=== PATIENT | female | born 1985 | race Caucasian/White ===

== ENCOUNTER 2020-08-06 09:08 | Inpatient (IN) | payer MEDICAID ==
[~2020-08-06] VITALS: Ht 157.5 cm; Wt 72.6 kg
[2020-08-06] MEDS ORDERED: LIDOCAINE HCL 1% 20ML VIAL (Pyxis) INJ INFIL SCH (11:00)
[2020-08-06] MEDS ORDERED: PENICILLIN G POTASSIUM 5 MMU in DEXT 5% WATER 100 ML IV SCH (11:00)
[2020-08-06] MEDS ORDERED: NALOXONE HCL 0.4 MG/ML 1ML VIAL IM PRN (11:00)
[2020-08-06] MEDS ORDERED: MISOPROSTOL 100MCG TABLET VG SCH (11:00)
[2020-08-06] MEDS ORDERED: CARBOPROST TROMETHAMINE 250 MCG/ML AMPUL IM PRN (11:00)
[2020-08-06] MEDS ORDERED: METHYLERGONOVINE MALEATE 0.2 MG/ML IM PRN (11:00)
[2020-08-06 11:18] LABS: BASOPHILS % 0.5 % (0.0-2.0); EOSINOPHILS % 0.7 % (0.0-5.0); HEMATOCRIT. 30.1 % (36.0-48.0); HEMOGLOBIN. 9.6 g/dL (12.0-16.0); LYMPHOCYTES % 16.9 % (20.0-50.0); MEAN CORPUSCULAR HEMOGLOBIN 25.4 pg (28.0-32.0); MEAN CORPUSCULAR VOLUME 79.6 fL (81.0-99.0); MEAN PLATELET VOLUME 10.8 fl (7.4-10.4); MONOCYTES % 8.9 % (2.0-8.0); PLATELET 169 x1000/uL (130-400); RED BLOOD CELL COUNT 3.78 mill/uL (4.2-5.4); RED CELL DISTRIBUTION WIDTH 20.6 % (11.6-14.6)
[2020-08-06 11:30] LABS: PARTIAL THROMBOPLASTIN TIME 28.5 sec (23.4-31.0); PROTHROMBIN TIME 10.3 sec (9.6-11.0)
[2020-08-06 11:36] LABS: CLARITY URINE CLEAR (CLEAR); COLOR URINE YELLOW (YELLOW); KETONES URINE NEGATIVE (NEGATIVE); LEUKOCYTE ESTERASE URINE NEGATIVE (NEGATIVE); NITRITE URINE NEGATIVE (NEGATIVE); OCCULT BLOOD URINE NEGATIVE (NEGATIVE); PH URINE 6.5 (4.5-8.0); PROTEIN URINE NEGATIVE (NEGATIVE)
[2020-08-06 11:46] LABS: HEPATITIS B SURFACE ANTIGEN NEGATIVE
[2020-08-06 11:53] LABS: *AMPHETAMINES SCREEN URINE NEGATIVE (NEGATIVE); *COCAINE SCREEN URINE NEGATIVE (NEGATIVE)
[2020-08-06 11:54] LABS: *BARBITURATES SCREEN URINE NEGATIVE (NEGATIVE); *BENZODIAZEPINES SCREEN URINE NEGATIVE (NEGATIVE)
[2020-08-06 11:55] LABS: CANNABINOID URINE SCREEN NEGATIVE (NEGATIVE)
[2020-08-06 11:56] LABS: METHADONE URINE SCREEN NEGATIVE (NEGATIVE); OPIATES URINE SCREEN NEGATIVE (NEGATIVE)
[2020-08-06 11:57] LABS: PHENCYCLIDINE URINE SCREEN NEGATIVE (NEGATIVE)
[2020-08-06] MEDS: LACTATED RINGERS 1,000 ML IV SCH ×2 (13:41→22:43)
[2020-08-06] MEDS: DEXT 5%/LR + PITOCIN 20UNITS/L 1,000 ML IV SCH (14:10)
[2020-08-06] MEDS ORDERED: ROPIVACAINE HCL/PF EPIDURAL 200 ML EP SCH (16:45)
[2020-08-06] MEDS: BUTORPHANOL TARTRATE 2 MG/ML VIAL IV PRN ×2 (18:04→23:10)
[2020-08-06] MEDS: PENICILLIN G POTASSIUM 2.5 MMU in DEXTROSE 5% WATER 50 ML IV SCH ×2 (18:59→22:56)
[2020-08-06] MEDS ORDERED: FOLI0.4T2 MT (21:28)
[2020-08-06] MEDS ORDERED: PREN-182 PO (21:28)
[2020-08-06] MEDS ORDERED: FERR325T6 PO (21:28)
[2020-08-06] MEDS ORDERED: CALC-837 PO (21:28)
[2020-08-07] MEDS: BUTORPHANOL TARTRATE 2 MG/ML VIAL IV PRN (01:30)
[2020-08-07] MEDS: LACTATED RINGERS 1,000 ML IV SCH (02:53)
[2020-08-07] MEDS: PENICILLIN G POTASSIUM 2.5 MMU in DEXTROSE 5% WATER 50 ML IV SCH (02:59)
[2020-08-07] MEDS ORDERED: BENZOCAINE/LANOLIN/ALOE VERA SPRAY TOP PRN (04:45)
[2020-08-07] MEDS ORDERED: IBUPROFEN 400MG TABLET PO PRN (04:45)
[2020-08-07] MEDS ORDERED: BISACODYL 10MG SUPP PR PRN (04:45)
[2020-08-07] MEDS ORDERED: DIPHENHYDRAMINE 25MG CAPSULE PO PRN (04:45)
[2020-08-07] MEDS ORDERED: GLYCERIN/WITCH HAZEL LEAF MEDICATED PAD TOP PRN (04:45)
[2020-08-07] MEDS ORDERED: HEMORRHOIDAL SUPP PR PRN (04:45)
[2020-08-07] MEDS ORDERED: DEXT 5%/LR + PITOCIN 20UNITS/L 1,000 ML IV SCH (04:45)
[2020-08-07] MEDS ORDERED: LANOLIN OINT 7GM TUBE TOP PRN (04:45)
[2020-08-07] MEDS ORDERED: ACETAMINOPHEN WITH CODEINE 300/30MG TABLET PO PRN (04:45)
[2020-08-07] MEDS: IBUPROFEN 800MG TABLET PO PRN ×2 (05:46→17:11)
[2020-08-07] MEDS: DEXT 5%/LR + PITOCIN 20UNITS/L 1,000 ML IV SCH (05:52)
[2020-08-07] MEDS ORDERED: ONDANSETRON HCL 4MG/2ML INJ IV PRN (06:00)
[2020-08-07] MEDS ORDERED: ONDANSETRON HCL 4MG/2ML INJ IV ONE (06:30)
[2020-08-07 06:40] VITALS: BP 96/54
[2020-08-07 07:31] VITALS: BP 94/58
[2020-08-07] MEDS: PRENATAL VIT/FE FUMARATE/FA TABLET PO SCH (08:15)
[2020-08-07] MEDS: MAGNESIUM/ALUMINUM HYDROXIDE/SIMETHICONE 30ML UDC PO SCH ×4 (08:15→20:28)
[2020-08-07] MEDS: SIMETHICONE 80MG TABLET CHEW PO SCH ×4 (08:15→20:27)
[2020-08-07 15:45] VITALS: BP 94/53
[2020-08-07 20:00] VITALS: BP 90/61
[2020-08-07] MEDS ORDERED: DOCUSATE SODIUM 100MG CAPSULE PO SCH (21:00)
[2020-08-08] VITALS: BP 96/60
[2020-08-08] MEDS ORDERED: RHO(D) IMMUNE GLOBULIN 300 MCG/SYR IM NR (00:15)
[2020-08-08 06:17] LABS: BASOPHILS % 0.7 % (0.0-2.0); EOSINOPHILS % 1.1 % (0.0-5.0); HEMATOCRIT. 25.9 % (36.0-48.0); HEMOGLOBIN. 8.3 g/dL (12.0-16.0); LYMPHOCYTES % 25.5 % (20.0-50.0); MEAN CORPUSCULAR HEMOGLOBIN 25.9 pg (28.0-32.0); MEAN CORPUSCULAR VOLUME 80.5 fL (81.0-99.0); MEAN PLATELET VOLUME 10.4 fl (7.4-10.4); MONOCYTES % 7.4 % (2.0-8.0); NEUTROPHILS % 65.3 % (40.0-76.0); PLATELET 144 x1000/uL (130-400); RED BLOOD CELL COUNT 3.21 mill/uL (4.2-5.4); RED CELL DISTRIBUTION WIDTH 24.6 % (11.6-14.6)
[2020-08-08] MEDS ORDERED: IBUP-2030 PO (07:06)
[2020-08-08] MEDS ORDERED: FERROUS SULFATE 325MG TABLET PO SCH (07:30)
[2020-08-08 07:43] VITALS: BP 98/69
[2020-08-08] MEDS: MAGNESIUM/ALUMINUM HYDROXIDE/SIMETHICONE 30ML UDC PO SCH (07:45)
[2020-08-08] MEDS: SIMETHICONE 80MG TABLET CHEW PO SCH (07:46)
[2020-08-08] MEDS: IBUPROFEN 800MG TABLET PO PRN (07:46)
[2020-08-08] MEDS: PRENATAL VIT/FE FUMARATE/FA TABLET PO SCH (07:46)
[2020-08-08 16:18] LABS: PLATELET ESTIMATE NORMAL
== END 2020-08-08 13:00 | disposition home or self-care (01) | DRG 560 ==
LOC: 8 EST LDRP 09:08 → OBSVTOIN 09:08 → 8EST 08-07 14:37
PROVIDERS: ADMIT Obstetrics & Gynecology; ATTEND Obstetrics & Gynecology
PROC: 10E0XZZ Delivery of Products of Conception, External Approach (ICD-10-PCS; principal; 2020-08-07)
PROC: 3E0R3BZ Introduction of Anesthetic Agent into Spinal Canal, Percutaneous Approach (ICD-10-PCS; 2020-08-07)
PROC: 00HU33Z Insertion of Infusion Device into Spinal Canal, Percutaneous Approach (ICD-10-PCS; 2020-08-07)
PROC: 3E0234Z Introduction of Serum, Toxoid and Vaccine into Muscle, Percutaneous Approach (ICD-10-PCS; 2020-08-07)
DX: O99.02 Anemia complicating childbirth (principal); D64.9 Anemia, unspecified; Z20.822 Contact with and (suspected) exposure to COVID-19; O26.893 Other specified pregnancy related conditions, third trimester; Z3A.39 39 weeks gestation of pregnancy; Z37.0 Single live birth; Z67.91 Unspecified blood type, Rh negative
CPT/HCPCS: 36415; 80305; 81003; 85025; 86592; 86703; 86762; 86850; 86886; 86900; 87340; 87426; 90384; 99281; J0595; J2405; J2540; J2590; J2795; J3490; J7060